=== PATIENT | female | born 1985 | race Caucasian/White ===

== ENCOUNTER 2019-10-29 15:53 | Outpatient (CLI) | payer BC, SELFPAY ==
--- NOTE | ~2019-10-29 | US_ITS ---
EXAMINATION: US pelvic complete w TV DATE: 10/29/2019 16:45 INDICATION: Left-sided pelvic pain TECHNIQUE: Multiple transabdominal and endovaginal sonographic images of the pelvis were obtained. COMPARISON: None. FINDINGS: The uterus measures 9.6 x 6.9 x 5.9 cm. The endometrial complex measures 16 mm. The right o vary measures 2.5 x 1.8 x 2.3 cm. The left ovary measures 2.7 x 2.7 x 2.3 cm. There is normal vascula r flow in the ovaries. There is no free fluid in the pelvis. IMPRESSION: 1. No sonographic correlate for the patient's symptoms. Reviewed, dictated and finalized at location B.
== END 2019-10-29 15:54 | disposition home or self-care (01) ==
PROVIDERS: PCP Family Medicine; Visit Provider Nurse Practitioner Women's Health
DX: R10.2 Pelvic and perineal pain (principal)
CPT/HCPCS: 76830; 76856

== ENCOUNTER 2023-07-18 00:24 | Day surgery (SDC) | payer OTHER, SELFPAY ==
[2023-07-08 14:28] VITALS: BMI 39.9
--- NOTE | 2023-07-08 14:56 | PC.NURSE ---
Report to the Outpatient Waiting Room, entrance under the green pavilion located off [facility], at 1130 on 07-18-23. Planned Procedure Time: 1330. Time changes happen often and if your time is changed the preop area will call you the afternoon before. - You and your visitor will be asked to self-screen and do not enter if you have any COVID symptoms. - A mask is optional within the hospital at this time. Patients may have clear liquids (water, carbonated beverages, clear teas, apple juice) until 3 hours prior to surgery with a maximum of 20 ounces. 1030 - No food from midnight until time of surgery - Infants may have breast milk until 4 hours before surgery, formula 6 hours prior to surgery. - Children will be allowed to drink immediately following surgery. If applicable, please bring a bottle or sippy cup to assist with drinking. Juice, water, soda, and popsicles are readily available. For infants on formula, please bring formula the day of surgery. Pacifiers are allowed. Take the following medications with a SIP of water the morning of surgery: None DO NOT STOP ANY OF YOUR OTHER PRESCRIPTION MEDICATIONS PRIOR TO SURGERY ?EXCEPT THE FOLLOWING Medications to discontinue per physician: vitamins and supplements Date to take last dose: 07-15-23 Please no make-up, nail bahraini, hairspray, perfume, deodorant, or body powder the day of surgery. No jewelry (including any body piercings) or valuables the day of surgery, leave them at home. Please take a shower or bath the night before, or the morning of, surgery with an antibacterial soap. Wear comfortable, loose fitting clothing. Children are encouraged to wear pajamas. - Jewelry must be removed prior to entering the operating room. Rings and piercings that are not removed may be cut off. - The hospital will not accept responsibility for valuables. - Please leave all valuables, including medications, at home the day of surgery. If you are going home after surgery, a licensed local tanker truck driver must drive you home. - NO public transportation without another adult if you receive anesthesia. - We recommend that an adult stay with you for 24 hours following discharge. - We also recommend that you do not drive, make important decision, drink alcoholic beverages, or take any drugs that were not prescribed by your health care provider for at least 24 hours after your discharge time. For Pediatric surgeries, we recommend two adults accompany the child home. Follow any additional instructions given to you from your surgeon. If you or anyone in your household have experienced Covid symptoms in the past week, please notify your surgeon or the nurse liaison at the phone number below for possible testing. Telephone instructions given to Diamond Nash and asked if any additional questions and then verbalized understanding. Patient advised to call surgeon office or pre surgery nurse liaison [phone] if any additional questions.
--- NOTE | 2023-07-16 07:40 | PM.IMHP ---
H&P: HPI History of Present Illness Date/Time: 07/16/23 07:40 Chief Complaint: Uterine fibroid with pelvic pain and excessive heavy bleeding Narrative: This is a 38-year-old 2 para 2 admitted for robotic hysterectomy and bilateral salpingectomy secondary to symptomatic uterine fibroids. She is status post tubal ligation. 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 Risks and benefits of this procedure reviewed including exclusive of , aspiration, bleeding, transfusion, perforation injury to bowel, bladder, ureters, or other internal organs with need for open laparotomy. She received the [employer] handout entitled hysterectomy. As well she also received the de Vlad handout. She had all questions answered. She asked to proceed PMFSH Past Medical History Medical History Herpes Vaginal delivery Surgical History Surgical History History of tubal ligation Previous section Family History Family History Mother Breast cancer Social History Social History Smoking packs per day: 0.5 Smoking cigarettes per day: 10.0 Years smoked: 1 Smoking pack-years: 0.50 Smoking status: Former smoker Tobacco type: cigarettes Second hand tobacco smoke exposure: No Smoking end date: 10/23/07 Alcohol intake: current Alcohol use details: Sometimes Substance use: never Substance use type: does not use Living arrangements: with family Spiritual care concerns: No Meds Home Medications and Allergies Home Medications Medication Instructions Recorded Confirmed Type calcium-magnesium 300 mg-300 mg 1 tablet PO DAILY 07/08/23 07/08/23 History tablet levonorgestrel 0.15 mg-ethinyl 0.15 tablet PO DAILY 07/08/23 07/08/23 History estradiol 30 mcg tablets,3 mos pack(91) Allergies Allergy/AdvReac Type Severity Reaction Status Date / Time No Known Allergies Allergy Verified 07/08/23 14:23 Exam Const: General: cooperative, healthy appearing, comfortable and average body habitus Orientation/consciousness: oriented to person, oriented to place and oriented to time HENMT: Head: normal to inspection Resp: Effort & Inspection: normal respiratory effort Cardio: Rate: regular rate Rhythm: regular rhythm Heart sounds: S1 normal heart sound present and S2 normal heart sound present GI: Inspection: normal to inspection Percussion: Yes normal to percussion Auscultation: normal bowel sounds : External Female Exam: normal external appearance Speculum Exam - Vagina: normal appearance of the vagina Speculum Exam - Cervix: normal appearance of the cervix Bimanual exam- vagina & uterus: enlarged and Uterine tenderness Bimanual Exam- Adnexa, other: normal adnexae Assessment and Plan Assessment and plan (1) Uterine fibroid: Code(s): D25.9 - Leiomyoma of uterus, unspecified Status: Acute (2) Excessive bleeding: Code(s): R58 - Hemorrhage, not elsewhere classified Status: Acute Plan Robotic total vaginal hysterectomy and salpingectomy
[2023-07-18] VITALS (8 sets, daily range): BP systolic 102–129; BP diastolic 66–89; PULSE 52–73; RESP 7–18; TEMP 36.1–36.8; O2SAT 99–100; BMI 25.2
--- NOTE | 2023-07-18 06:28 | WPDHPUPDATE1 ---
History and Physical Update Update Date/Time: 07/18/23 06:28 History and Physical has been reviewed, including an updated exam of the patient. There are NO changes in the patient's condition. Risks, benefits, and alternatives have been discussed and questions answered. Patient agrees to proceed with procedure.
[2023-07-18] MEDS: LACTATED RINGERS 1,000 ML 30 ML IV CONT ×2 (11:50→14:08)
[2023-07-18 11:57] LABS: Basophils Absolute Auto 0.1 K/mm3 (0.0-0.1); Basophils Percent Auto 1.3 % (0.2-1.2); Eosinophils Absolute Auto 0.1 K/mm3 (0-0.3); Hematocrit 40.5 % (37.0-47.0); Hemoglobin 12.3 g/dL (12.0-15.0); Immature Granulocyte Absolute 0.01 K/mm3 (0.00-0.031); Immature Granulocyte Percent A 0.2 % (0-0.5); Lymphocytes Percent Auto 40.7 % (18.3-44.2); Mean Corpuscular HGB Conc 30.4 g/dl (32-36); Mean Corpuscular Hemoglobin 23.5 pg (26-34); Mean Corpuscular Volume 77.4 fl (80-100); Mean Platelet Volume 11.2 fl (7.4-10.4); Monocytes Absolute Auto 0.5 K/mm3 (0.1-0.6); Monocytes Percent Auto 9.6 % (2.6-8.5); Neutrophils Absolute Auto 2.5 K/mm3 (1.3-6.7); Neutrophils Percent Auto 46.2 % (45.5-73.1); Platelet Count Result 378 k/mm3 (150-375); Red Blood Count 5.23 M/mm3 (4.2-5.4); Red Cell Distribution Width 16.2 % (11.5-14.5); White Blood Count 5.4 K/mm3 (4.5-10.0)
[2023-07-18] MEDS: ACETAMINOPHEN 500 MG TABLET 1000 MG PO (12:05)
[2023-07-18] MEDS: KETOROLAC 15 MG/ML VIAL (*BKC) IV PUSH (12:06)
--- NOTE | 2023-07-18 12:25 | WPDANESEPPF ---
Anes - Initial Pre Proc Eval Procedure: Operation Date: 07/18/23 13:30 Proposed Procedures p Robotic Assisted Total Vaginal Hysterectomy with Bilateral Salpingectomy - Guillermo La MD Date/Time: 07/18/23 12:25 Surgeon: Guillermo La MD Pre Op Diagnosis: pelvic pain, enlarged uterus, fibroids, irrg bleed Patient Data Age: 38 Gender: F Height: 1.78 m Weight: 79.8 kg Last Vital Signs Temp 98.3 F 07/18/23 11:20 Pulse 64 07/18/23 11:20 Resp 16 07/18/23 11:20 BP 122/81 07/18/23 11:20 Pulse Ox 100 07/18/23 11:20 O2 Del Method Room Air 07/18/23 11:20 Allergies Allergy/AdvReac Type Severity Reaction Status Date / Time No Known Allergies Allergy Verified 07/18/23 12:13 Home Medications Medication Instructions Recorded Confirmed Type calcium-magnesium 300 mg-300 mg 1 tablet PO DAILY 07/08/23 07/18/23 History tablet levonorgestrel 0.15 mg-ethinyl 0.15 tablet PO DAILY 07/08/23 07/08/23 History estradiol 30 mcg tablets,3 mos pack(91) hydrocodone 5 mg-acetaminophen 325 1 tablet PO Q4H PRN pain #30 tabs 07/18/23 Rx mg tablet Laboratory Tests 07/18/23 11:53 WBC 5.4 K/mm3 (4.5-10.0) RBC 5.23 M/mm3 (4.2-5.4) Hgb 12.3 g/dL (12.0-15.0) Hct 40.5 % (37.0-47.0) MCV 77.4 L fl (80-100) MCH 23.5 L pg (26-34) MCHC 30.4 L g/dl (32-36) RDW 16.2 H % (11.5-14.5) Plt Count 378 H k/mm3 (150-375) MPV 11.2 H fl (7.4-10.4) Immature Gran % (Auto) 0.2 % (0-0.5) Neut % (Auto) 46.2 % (45.5-73.1) Lymph % (Auto) 40.7 % (18.3-44.2) Stark % (Auto) 9.6 H % (2.6-8.5) Eos % (Auto) 2.0 % (0-4.4) Baso % (Auto) 1.3 H % (0.2-1.2) Lymph # (Auto) 2.20 K/mm3 (0.9-3.2) Stark # (Auto) 0.5 K/mm3 (0.1-0.6) Eos # (Auto) 0.1 K/mm3 (0-0.3) Baso # (Auto) 0.1 K/mm3 (0.0-0.1) Abs Immat Gran (auto) 0.01 K/mm3 (0.00-0.031) Absolute Neuts (auto) 2.5 K/mm3 (1.3-6.7) Absolute Nucleated RBC 0.000 K/mm3 (0.0-0.012) Nucleated RBC % 0.0 % (0.0-0.2) Patient hx anesthesia problems: none Family hx anesthesia problems: none Results Review: All pre-operative results and documents have been reviewed as part of the pre-operative evaluation. [facility] Past Medical History Medical History Herpes Vaginal delivery Surgical History Surgical History History of tubal ligation Previous section Family History Family History Mother Breast cancer Social History Social History Smoking packs per day: 0.5 Smoking cigarettes per day: 10.0 Years smoked: 1 Smoking pack-years: 0.50 Smoking status: Former smoker Tobacco type: cigarettes Second hand tobacco smoke exposure: No Smoking end date: 10/23/07 Alcohol intake: current Alcohol use details: Sometimes Substance use: never Substance use type: does not use Living arrangements: with family Spiritual care concerns: No Anes - Eval Final PreProcedure Day of Procedure 07/18/23 12:25 Patient weight: normal Heart: regular rate and rhythm Lungs: clear to auscultation Airway: Mallampati scale class II Neurological: alert and oriented Last oral intake: >/= 8 hours ASA classification: II Emergent: no Anesthetic plan: proceed Anesthesia type and monitoring: general ETT and standard monitoring Results Review: All pre-operative results and documents have been reviewed as part of the pre-operative evaluation. Informed Consent: The patient's anesthetic plan and its attendant risks and benefits were discussed with the patient/family/POA. Questions were solicited and answers provided to the satisfaction of the patient/family/POA.
[2023-07-18] MEDS: ceFAZolin 2 GM/D5W 50 ML 2 GM/50 ML BAG IVPB (12:57)
--- NOTE | 2023-07-18 13:51 | P.OP_ITS ---
Procedure Note - Detailed Date of Procedure 07/18/23 Pre-op Diagnosis pelvic pain, enlarged uterus, fibroids, irrg bleed Post-op Diagnosis Same Procedure Performed Robotic total vaginal hysterectomy and bilateral salpingectomy Surgeon Guillermo La MD Anesthesia General Indications 38-year-old female with excessive heavy bleeding pelvic pain enlarged uterus Findings enlarged uterus with what appeared to be endometriosis. Tubes status post tubal ligation. Normal-appearing ovaries bilaterally. Description of Procedure The patient was prepped draped in the normal sterile fashion placed in the dorsal lithotomy position. Under excellent general trach anesthesia weighted speculum placed in posterior fornix vagina. Anterior lip of the cervix grasped with single-tooth tenaculum. Uterus sounded to 11cm. Serial dilatation with fragmented dilators performed followed passes the 10. HAILEY and 3. Cold cup. Next the 16 [place] catheter was placed in the bladder and the bladder emptied of clear urine. The weighted speculum single-tooth removed and the gloves were changed. A supraumbilical incision made the Veress needle passed in the abdomen. Abdomen filled with CO2 gas 15mmmmofmercury. The 8mm trocar advanced under direct visualization no injury seen. Patient placed in Trendelenburg and 18? right left lateral quadrant incisions made. 8Mm trocars advanced under direct visualization assuring no injury. Right upper quadrant incision made the 8mm trocar advanced under direct visualization assuring no injury. The robot was docked. Attention was turned to the console. The uterus was noted be markedly enlarged with endometriosis and crusted over the top. The tubes were status post tubal ligation and there normal-appearing ovaries. The left round ligament was grasped, burned,. A bladder flap was formed by sharply dissecting the peritoneum and reflecting bladder caudally away from the cervix uterus the opposite round ligament was clamped,. Next the left fallopian tube was dissected away from the ovary and left attached to its. Similar fashion the right the from the right fallopian tube the left attached to its origin. A pin. The next step included a clamping burning cutting the utero- ovarian ligament to conserve the left ovary and tube. This brought to the level of previously cut similar fashion on the right, the utero-ovarian was clamped, burned cut to the is cut conserving right. The cardinal broad ligaments on the left were serially skeletonized clamping burning cutting this down lateral edge to uterus until uterine vessels could seen. Large and tortuous. Each was individually clamped, burned, cut. Beginning on the right cardinal broad ligaments were skeletonized clamping burning cutting cervix uterus until the uterine vessels could be seen the right. These were individually clamped, burned, cut. Hemostasis was assured a colpotomy incision was made. Uterus cervix and tubes removed through the vagina. Under was then closed with continuous running 0V from lateral edge to lateral edge back to midline. Irrigation undertaken to clear blood loss estimated 25cc. Robot was undocked the gas removed from the abdomen. The trocars removed the incisions closed with 4 Monocryl and glue. Patient was awakened which covered satisfactory condition. All sponge, needle, instrument counts were correct. Immediate complications noted Estimated Blood Loss 25 Drains No Packing No Pathology Yes Complications No immediate complications Condition Stable Disposition PACU
--- NOTE | 2023-07-18 13:57 | PM.DS ---
DS: Admitting Diagnosis Discharge Date 07/19/2023 Admitting Diagnosis excessive bleeding and enlarged uterus DS: Discharge Diagnosis Discharge Diagnosis (1) Excessive bleeding: Code(s): R58 - Hemorrhage, not elsewhere classified Status: Acute (2) Uterine fibroid: Code(s): D25.9 - Leiomyoma of uterus, unspecified Status: Acute DS: Summary Hospital Course Reason for hospitalization: the patient was admitted for a robotic total vaginectomy bilateral salpingectomy on 07/18/2023. The procedure was unremarkable Hospital Course: the patient's hospital course was unremarkable. She remained afebrile. She was up, voiding without difficulty, eating very diet, ambulating generally without complaints. Time Spent with Patient Time attestation: Total time spent providing and/or coordinating discharge services: Exam Const: General: cooperative, healthy appearing and comfortable Nutritional Appearance: average body habitus Orientation/consciousness: oriented to person, oriented to place and oriented to time HENMT: Head: normal to inspection Resp: Effort & Inspection: normal respiratory effort Cardio: Rate: regular rate Rhythm: regular rhythm Heart sounds: S1 normal heart sound present and S2 normal heart sound present GI: Inspection: normal to inspection and incision ( Wounds are clean dry and intact) DS: Data Data Completed and Pending Pending studies at discharge: Pending at discharge 07/18/23 13:51 Surgical [PTH] Routine Labs on day of discharge: Labs from last 24 hours 07/18/23 11:53 WBC 5.4 RBC 5.23 Hgb 12.3 Hct 40.5 MCV 77.4 L MCH 23.5 L MCHC 30.4 L RDW 16.2 H Plt Count 378 H MPV 11.2 H Immature Gran % (Auto) 0.2 Neut % (Auto) 46.2 Lymph % (Auto) 40.7 [place] % (Auto) 9.6 H Eos % (Auto) 2.0 Baso % (Auto) 1.3 H Lymph # (Auto) 2.20 [place] # (Auto) 0.5 Eos # (Auto) 0.1 Baso # (Auto) 0.1 Abs Immat Gran (auto) 0.01 Absolute Neuts (auto) 2.5 Absolute Nucleated RBC 0.000 Nucleated RBC % 0.0 Blood Type A Positive Antibody Screen Negative Discharge Plan Discharge Patient Disposition: Home, Self-Care Stand Alone Forms: General Discharge Instructions Follow-up/Referrals: Guillermo Palomino MD [Physician] - Discharge Medications: New hydrocodone-acetaminophen 5-325 mg tablet 1 tablet PO Q4H PRN (Reason: pain) Qty: 30 0RF No Action levonorgestrel-ethinyl estrad 0.15 mg-30 mcg (91) tablets,dose pack,3 month 0.15 tablet PO DAILY Patient Comments: patient takes in the evening calcium-magnesium 300-300 mg Tablet 1 tablet PO DAILY Rx Instructions: administer with a meal
[2023-07-18] MEDS: fentaNYL CITRATE INJ (*CRX) 100 MCG/2 ML VIAL 25 MCG IV PUSH ×3 (14:46→14:52)
[2023-07-18] MEDS: DEXTROSE 5%/LACTATED RINGERS 1,000 ML 125 ML IV CONT (15:51)
[2023-07-18] MEDS: IBUPROFEN 600 MG TABLET PO (17:30)
[2023-07-18] MEDS: SIMETHICONE 80 MG TAB.CHEW PO (17:30)
[2023-07-18] MEDS: DOCUSATE SODIUM 100 MG CAPSULE PO (17:30)
[2023-07-18] MEDS: HYDROcodone/acetaminophen (*CRX) 5-325 MG TABLET 1 TAB PO ×2 (17:31→20:27)
[2023-07-18] MEDS: SIMETHICONE 80 MG TAB.CHEW (21:16)
[2023-07-19] VITALS: BP 105/64; PULSE 63; RESP 18; TEMP 36.6; O2SAT 100
[2023-07-19] MEDS: IBUPROFEN 600 MG TABLET PO ×2 (00:26→07:54)
[2023-07-19] MEDS: HYDROcodone/acetaminophen (*CRX) 5-325 MG TABLET 1 TAB PO ×3 (00:26→07:54)
[2023-07-19 04:00] VITALS: BP 107/73; PULSE 75; RESP 18; TEMP 36.8; O2SAT 99
[2023-07-19 05:57] LABS: Basophils Percent Auto 0.2 % (0.2-1.2); Hematocrit 34.8 % (37.0-47.0); Hemoglobin 10.4 g/dL (12.0-15.0); Immature Granulocyte Absolute 0.06 K/mm3 (0.00-0.031); Immature Granulocyte Percent A 0.5 % (0-0.5); Lymphocytes Absolute Auto 1.48 K/mm3 (0.9-3.2); Lymphocytes Percent Auto 11.4 % (18.3-44.2); Mean Corpuscular HGB Conc 29.9 g/dl (32-36); Mean Corpuscular Hemoglobin 23.4 pg (26-34); Mean Corpuscular Volume 78.2 fl (80-100); Mean Platelet Volume 12.1 fl (7.4-10.4); Monocytes Percent Auto 7.3 % (2.6-8.5); Neutrophils Absolute Auto 10.5 K/mm3 (1.3-6.7); Neutrophils Percent Auto 80.6 % (45.5-73.1); Platelet Count Result 352 k/mm3 (150-375); Red Blood Count 4.45 M/mm3 (4.2-5.4)
--- NOTE | 2023-07-19 07:34 | PM.GYNPNOP ---
SINGLE STROKE PREFORMER - A/P Postoperative Procedures: Procedures Operation Date: 07/18/23 13:30 Actual Procedure Side Surgeon p Robotic Assisted Total Vaginal Hysterectomy with Bilateral Salpingectomy Bilateral Guillermo La MD Postoperative day: 1 Postoperative status: doing well Postoperative plan: routine post-op care, see orders, ambulate, advance diet, voiding trials and discharge Time Spent With Patient Time: Total time spent is greater than 50% in coordination of care (as documented) at patient's floor/unit and/or counseling patient: Time with patient: less than 15 minutes SINGLE STROKE PREFORMER- PN:Subj Post-Op Subjective Date/time seen: 07/19/23 07:34 Subjective: patient reports feeling better, patient has no complaints, patient desires discharge, pain is well controlled and patient is tolerating oral intake Exam Const: General: cooperative, healthy appearing and comfortable Nutritional Appearance: average body habitus Orientation/consciousness: oriented to person, oriented to place and oriented to time HENMT: Head: normal to inspection Resp: Effort & Inspection: normal respiratory effort Cardio: Rate: regular rate Rhythm: regular rhythm Heart sounds: S1 normal heart sound present and S2 normal heart sound present GI: Inspection: normal to inspection and incision (cdi) SINGLE STROKE PREFORMER - PN: Obj Data Vital Signs Vital Signs: Vital Signs - 24 hr 07/18/23 11:20 07/18/23 14:08 07/18/23 14:22 Temperature 98.3 F 97.4 F L Pulse Rate 64 63 59 L Respiratory Rate 16 10 L 7 L Blood Pressure 122/81 102/66 112/83 Pulse Oximetry 100 100 100 Oxygen Delivery Room Air Simple Face Mask Simple Face Mask Oxygen Flow Rate 6 6 07/18/23 14:35 07/18/23 14:50 07/18/23 15:05 Temperature Pulse Rate 52 L 55 L 54 L Respiratory Rate 8 L 10 L 10 L Blood Pressure 129/87 117/89 112/76 Pulse Oximetry 100 100 99 Oxygen Delivery Room Air Room Air Room Air Oxygen Flow Rate 07/18/23 16:46 07/18/23 20:00 07/18/23 20:00 Temperature 97.9 F 97 F L Pulse Rate 64 73 Respiratory Rate 16 18 Blood Pressure 123/83 108/75 Pulse Oximetry 100 99 Oxygen Delivery Room Air Oxygen Flow Rate 07/19/23 00:00 07/19/23 04:00 Temperature 98 F 98.2 F Pulse Rate 63 75 Respiratory Rate 18 18 Blood Pressure 105/64 107/73 Pulse Oximetry 100 99 Oxygen Delivery Oxygen Flow Rate Intake/Output Intake/Output: Intake & Output 07/16/23 07/17/23 07/18/23 07/19/23 23:59 23:59 23:59 23:59 Intake Total 450 Output Total 965 250 Balance -515 -250 Meds/Results Medications: Active Medications Generic Name Dose Route Start Last Admin Trade Name Freq PRN Reason Stop Dose Admin Hydrocodone Bitart/Acetaminophen 1 tab 07/18/23 15:13 07/19/23 03:36 Hydrocodone/Acetaminophen (*Crx) 5-325 Mg Tablet PO 1 tab Q3H PRN Administration Pain Rated 5 or Less Hydrocodone Bitart/Acetaminophen 1 tab 07/18/23 15:13 Hydrocodone/Acetaminophen (*Crx) 10-325 Mg Tablet PO Q3H PRN Pain Rated 6 or Greater Docusate Sodium 100 mg 07/18/23 17:00 07/18/23 17:30 Docusate Sodium 100 Mg Capsule PO 100 mg BID TASHI Administration Enoxaparin Sodium 40 mg 07/19/23 09:00 Enoxaparin 40 Mg/0.4 Ml Syringe SUB-Q DAILY [facility] Ibuprofen 600 mg 07/18/23 15:13 07/19/23 00:26 Ibuprofen 600 Mg Tablet PO 600 mg Q6H PRN Administration Cramping Ketorolac Tromethamine 30 mg 07/18/23 15:13 Ketorolac 30 Mg/Ml Vial (*Bkc) IV PUSH 07/23/23 15:12 Q6H PRN Pain Rated 4-6 Naloxone HCl 0.1 mg 07/18/23 15:13 Naloxone Hcl 0.4 Mg/Ml Vial IV PUSH Q2M PRN Respiratory rate less than 10 Ondansetron HCl 4 mg 07/18/23 15:13 Ondansetron Inj 4 Mg/2 Ml Vial IV PUSH Q6H PRN Nausea And Vomiting Simethicone 80 mg 07/18/23 17:00 07/18/23 17:30 Simethicone 80 Mg Tab.Chew PO 80 mg TIDWM TASHI Administration Labs 07/18/23 11:53 Labs: Laboratory Results - last 2
[2023-07-19 07:50] VITALS: BP 103/61; PULSE 70; RESP 16; TEMP 36.7; O2SAT 98
[2023-07-19] MEDS: SIMETHICONE 80 MG TAB.CHEW PO (07:54)
[2023-07-19 08:21] LABS: Anisocytosis 1+; Hypochromasia 1+; Platelet Estimate Adequate (Adequate); Schistocytes None Seen
[2023-07-19] MEDS: ENOXAPARIN 40 MG/0.4 ML SYRINGE SUB-Q (08:54)
[2023-07-19] MEDS: DOCUSATE SODIUM 100 MG CAPSULE PO (08:54)
== END 2023-07-19 10:30 | disposition home or self-care (01) ==
LOC: ANHSURGERY 11:24 → ANHOB2 16:30
PROVIDERS: PCP Family Medicine; Visit Provider Obstetrics & Gynecology
PROC: (CPT 58552; principal; 2023-07-18 13:30)
DX: D25.1 Intramural leiomyoma of uterus (principal); N87.9 Dysplasia of cervix uteri, unspecified; N88.8 Other specified noninflammatory disorders of cervix uteri; N83.8 Other noninflammatory disorders of ovary, fallopian tube and broad ligament; Z79.891 Long term (current) use of opiate analgesic; Z98.890 Other specified postprocedural states; Z98.51 Tubal ligation status; Z87.891 Personal history of nicotine dependence; Z80.3 Family history of malignant neoplasm of breast
CPT/HCPCS: 58552; S2900; 36415; 85025; 86850; 86900; 86901; 88307; 99199; A9270; J0330; J0690; J1100; J1650; J1885; J2250; J2405; J2704; J3010; J7030; J7120; J7121